=== PATIENT | male | born 1980 | race Caucasian/White ===

== ENCOUNTER → 2024-02-26 06:21 | Day surgery (SDC) | payer OTHER, SELFPAY | LOC: GI 06:21 | PROVIDERS: ATTENDING PHYSICIAN Internal Medicine Gastroenterology | DX: Z12.11 Encounter for screening for malignant neoplasm of colon (principal); Q43.8 Other specified congenital malformations of intestine; D12.3 Benign neoplasm of transverse colon; D12.1 Benign neoplasm of appendix; Z83.719 Family history of colon polyps, unspecified | CPT/HCPCS: 45385; 45380; 88305 ==

== ENCOUNTER 2024-02-28 18:37 | Emergency (ER) | payer OTHER, SELFPAY ==
[2024-02-28 18:48] VITALS: BP 156/98
[2024-02-28 20:58] VITALS: BMI 32.2
[2024-02-28] MEDS: NSS 1000 IV (20:58)
[2024-02-28 21:10] LABS: % Basophils 0.6 % (0-2); % Eosinophils 0.8 % (0-6); % Immature Granulocytes 0.2 % (0-0.5); % Lymphocytes 23.6 % (20.5-51.1); % Monocytes 10.3 % (1.7-9.3); % Neutrophils 64.5 % (42.2-75.2); Absolute Lymphocytes 1.1 10^3/uL (1.2-3.4); Absolute Monocytes 0.5 10^3/uL (0.1-0.6); Absolute Neutrophils 3.1 10^3/uL (1.4-6.5); Hematocrit 39.7 % (39.0-52.0); Hemoglobin 14.1 g/dL (13.0-18.0); Mean Corp Hgb Conc. 35.5 g/dL (33.0-37.0); Mean Corpuscular Hgb 31.2 pg (27.0-31.0); Mean Corpuscular Volume 87.8 fL (80.0-94.0); Nucleated Red Blood Cells % 0 % (-); Platelet Count 188 10^3/uL (130-400); Red Blood Cell Count 4.52 10^6/uL (4.70-6.10); Red Cell Dist. Width 12.8 % (11.5-14.5); White Blood Cell Count 4.7 10^3/uL (4.8-10.8)
[2024-02-28 21:23] LABS: Lactic Acid 0.7 mmol/L (0.7-2.0)
[2024-02-28 21:24] LABS: ALT (SGPT) 32 U/L (0-50); AST (SGOT) 41 U/L (17-59); Albumin 4.5 g/dl (3.5-5.0); Alkaline Phosphatase 43 U/L (38-126); Blood Urea Nitrogen 8 mg/dl (9-20); Calcium 9.6 mg/dl (8.4-10.2); Carbon Dioxide 27 mmol/L (22-30); Chloride 101 mmol/L (98-107); Estimated Creatinine Clearance > 125 ml/min; Glucose 106 mg/dl (70-99); Potassium 4.5 mmol/L (3.5-5.1); Sodium 136 mmol/L (135-145); Total Bilirubin 0.7 mg/dl (0.2-1.3); Total Protein 7.4 g/dl (6.3-8.2); eGFR > 60.00
[2024-02-28] MEDS: OMNIPAQUE 50 ML PO (21:47)
[2024-02-28 22:12] LABS: COVID-19 Antigen Negative (Negative)
[2024-02-28 22:15] VITALS: BP 141/87
--- NOTE | 2024-02-28 22:38 | ED.GENMED ---
History of Present Illness
<Tucker Frost MD - Last Filed: 02/29/24 15:29>
General
Chief Complaint: Fever
Source: patient
Exam Limitations: none
Time Seen by Provider: 02/28/24 19:54
Nursing documentation reviewed up to this point in time: agreed with
Travel History
Have you had any contact with someone who has COVID-19?: No
Do you have any symptoms of coronavirus? Fever > 100 degrees, chills, cough, shortness of breath, sore throat, loss of taste or smell, muscle aches, or headache?: No
History of Present Illness
History of Present Illness:
Patient presents to ED secondary to persistent nausea, chills, body ache, low-grade fever, and decreased appetite over the past 2 days, 1 day after receiving outpatient elective colonoscopy. Per patient, during procedure, 1 polyp was removed.
There was 'spot' noted, for which he is scheduled for CT abdomen pelvis next week. Denies chest pain or shortness of breath. Denies abdominal pain. Denies vomiting. Patient reports having had normal bowel movement today, without any blood noted.
Denies direct sick contact. Denies recent illness. Patient otherwise is healthy without any significant medical history.
Review of Systems
<Tucker Frsot MD - Last Filed: 02/29/24 15:29>
Review of Systems
Allergies reviewed?: Yes
All Other Systems: ROS reviewed and negative except as documented in HPI and ROS
Constitutional: Reports fever
EENT: Reports no symptoms
Respiratory: Reports no symptoms
Cardiac: Reports no symptoms
ABD/GI: Reports nausea; Denies vomiting or diarrhea
: Reports no symptoms
Musculoskeletal: Reports muscle pain
Skin: Reports no symptoms
Neurological: Reports no symptoms
Phy Exam
<Tucker Frost MD - Last Filed: 02/29/24 15:29>
Physical Exam
Physical Exam:
Physical Exam
General: no apparent distress, not acutely ill. afebrile
Head: nc/at. eomi
Neck: supple. no meningeal signs.
Heart: s1/s2 regular rate and rhythm, no murmur. equal radial pulses.
Lungs: no acute respiratory distress. clear bilaterally
Abdomen: normal bowel sounds. not tender.
Neuro: alert and oriented. no focal neurological deficits
Skin: no rash
Psychiatric: well kept. interactive and cooperative
Extremities: no edema. no calf tenderness.
Course
<Tucker Frost MD - Last Filed: 02/29/24 15:29>
Orders/Labs/Results
Orders:
Orders
02/28/24 20:52
0.9% Sodium Chloride 1000 ml [Nss] 1,000 ml IV BOLUS
02/28/24 21:00
Complete Blood Count/With Diff Urgent
Comprehensive Metabolic Panel Urgent
Lactic Acid Q4H
Comment: CANCEL 2nd LACTIC ACID IF 1st LACTIC ACID IS LESS THAN 2
Blood Culture Q30M
INDY Source: Blood/Venous
Specimen Description:
02/28/24 21:27
CT Abd/pel W Iv And Oral Contr Urgent
Comment:
Reason For Exam: abnormal colonoscopy
Iohexol [Omnipaque] See Protocol PO NOW STA
02/28/24 21:47
COVID-19 Antigen Urgent
Source: Nasal Swab
02/28/24 22:46
Influenza A+B Rapid Molecular Urgent
INDY Source: Nasal Swab
Specimen Description:
Abnormal Lab Results
02/28/24
21:00
WBC 4.7 L 10^3/uL
(4.8-10.8)
RBC 4.52 L 10^6/uL
(4.70-6.10)
MCH 31.2 H pg
(27.0-31.0)
Absolute Lymphs (auto) 1.1 L 10^3/uL
(1.2-3.4)
Monocytes % 10.3 H %
(1.7-9.3)
BUN 8 L mg/dl
(9-20)
Glucose 106 H mg/dl
(70-99)
02/28/24 21:00
02/28/24 21:00
Vital Signs
Initial and Last Documented VS:
Initial Vital Signs
Temp Pulse Resp BP Pulse Ox
99.9 F 79 17 156/98 99
02/28/24 18:48 02/28/24 18:48 02/28/24 18:48 02/28/24 18:48 02/28/24 18:48
Last Documented Vital Signs
Temp Pulse Resp BP Pulse Ox
99.5 F 72 16 131/91 100
02/29/24 00:44 02/29/24 00:44 02/29/24 00:44 02/29/24 00:44 02/29/24 00:44
<Amadou Hyatt MD - Last Filed: 02/29/24 06:29>
Orders/Labs/Results
Orders:
Orders
02/28/24 20:52
0.9% Sodium Chloride 1000 ml [Nss] 1,000 ml IV BOLUS
02/28/24 21:00
Complete Blood Count/With Diff Urgent
Comprehensive Metabolic Panel Urgent
Lactic Acid Q4H
Comment: CANCEL 2nd LACTIC ACID IF 1st LACTIC ACID IS LESS THAN 2
Blood Culture Q30M
INDY Source: Blood/Venous
Specimen Description:
02/28/24 21:27
CT Abd/pel W Iv And Oral Contr Urgent
Comment:
Reason For Exam: abnormal colonoscopy
Iohexol [Omnipaque] See Protocol PO NOW STA
02/28/24 21:47
COVID-19 Antigen Urgent
Source: Nasal Swab
02/28/24 22:46
Influenza A+B Rapid Molecular Urgent
INDY Source: Nasal Swab
Specimen Description:
Abnormal Lab Results
02/28/24
21:00
WBC 4.7 L 10^3/uL
(4.8-10.8)
RBC 4.52 L 10^6/uL
(4.70-6.10)
MCH 31.2 H pg
(27.0-31.0)
Absolute Lymphs (auto) 1.1 L 10^3/uL
(1.2-3.4)
Monocytes % 10.3 H %
(1.7-9.3)
BUN 8 L mg/dl
(9-20)
Glucose 106 H mg/dl
(70-99)
02/28/24 21:00
02/28/24 21:00
Vital Signs
Initial and Last Documented VS:
Initial Vital Signs
Temp Pulse Resp BP Pulse Ox
99.9 F 79 17 156/98 99
02/28/24 18:48 02/28/24 18:48 02/28/24 18:48 02/28/24 18:48 02/28/24 18:48
Last Documented Vital Signs
Temp Pulse Resp BP Pulse Ox
99.5 F 72 16 131/91 100
02/29/24 00:44 02/29/24 00:44 02/29/24 00:44 02/29/24 00:44 02/29/24 00:44
<Tucker Frost MD - Last Filed: 02/29/24 15:29>
MDM/Problems Addressed
MDM/Problems Addressed:
Discussed with (GI) and discussed all findings. Recommends obtaining CT abd/pel. If negative, feels that pt can be discharged home for an outpatient f/u with pcp/GI
<Tucker Frost MD - Last Filed: 02/29/24 15:29>
*Critical Care Note
Total Time (30-74mins, 75-104mins- exclusive of procedures): Not Applicable
<Amadou Hyatt MD - Last Filed: 02/29/24 06:29>
Update Note
Update Note:
UPDATE (Amadou Hyatt MD)
I saw and examined patient after signout and reviewed all labs and imaging.
Focused HPI: 43-year-old male with history as documented presents for evaluation of some abdominal pain since routine colonoscopy on Thursday. Has had some nausea no vomiting. Had a low-grade fever. Called on-call GI doctor who recommended going to
the emergency room for assessment. He is still passing stool, last bowel movement was today and normal. Denies urinary symptoms. No other complaints.
Physical exam: Awake alert not in distress. Normal vitals on my assessment. His abdomen is soft, nondistended, nontender to deep palpation.
Medical Decision Makin-year-old male presents for abdominal pain and low-grade fever after colonoscopy on Thursday. Hypertensive in triage vitals normalized by my assessment. He had labs sent off including a CBC which was unremarkable, CMP
which showed no clinically significant abnormalities. Viral swabs were negative. He is pending CT of the abdomen pelvis. If no emergent pathology likely discharged to follow-up with GI and PCP outpatient.
CT of the abdomen pelvis shows signs consistent with enteritis�there was a question on CT report of partial small bowel obstruction but patient has no pain at present, no distention, no tenderness, no vomiting, and is still passing stools�this is
inconsistent with a diagnosis of bowel obstruction. Enteritis is most consistent with his clinical picture�was having nausea yesterday and crampy abdominal pain, slight fever. No clear indication for antibiotics. Likely viral. Advised bland
diet. Prescribe Zofran as needed for nausea. Will follow-up with PCP and GI as an outpatient. Discussed return precautions and all questions answered.
ED Attending Note
<Tucker Frost MD - Last Filed: 02/29/24 15:29>
-
Portions of this chart may have been created with voice recognition software.� Occasional wrong word or��sound alike� substitutions may have occurred due to the inherent limitations of voice recognition software.
Discharge Plan
Departure
Patient Disposition: Home (Routine Discharge)
Date of Disposition: 02/29/24
Time of Disposition: 00:55
Patient with high blood pressure during this ER visit?: Yes
Discharge Problem:
Enteritis, Fever
Instructions: Viral Gastroenteritis, Adult (DC), Fever, Adult (DC)
Prescriptions:
New
ondansetron 4 mg tablet,disintegrating
4 mg PO TIDPRN PRN (Reason: nausea/vomiting) Qty: 14 0RF
Referrals:
Matthew Monte, DO [Family Provider] -
Activity Restrictions/Additional Instructions:
As discussed, please follow-up with your primary care physician with any further concerns.
Interventions
Interventions:
*Risk Screen - Suicide Last Done: 02/29/24 01:06
*General Assessment Last Done: 02/28/24 22:12
*Neglect/Abuse Screening Last Done: 02/29/24 01:06
ED- Fall Risk Assessment Last Done: 02/28/24 22:12
*Nursing Disposition Last Done: 02/29/24 01:06
ED- Neurological Assessment Last Done: 02/28/24 22:12
ED-Skin Assessment Last Done: 02/28/24 22:12
Discharge Date and Time
Discharge Date/Time: 02/29/24 01:06
Print Language: FRISIAN
[2024-02-29 00:44] VITALS: BP 131/91
== END 2024-02-29 01:06 | disposition home or self-care (01) ==
LOC: EMR 18:37
PROVIDERS: EMERGENCY PHYSICIAN Emergency Medicine; FAMILY PHYSICIAN Family Medicine
DX: R50.9 Fever, unspecified (principal); K52.9 Noninfective gastroenteritis and colitis, unspecified; R11.0 Nausea; Z11.52 Encounter for screening for COVID-19; M79.10 Myalgia, unspecified site; R03.0 Elevated blood-pressure reading, without diagnosis of hypertension; Z98.890 Other specified postprocedural states
CPT/HCPCS: 99285; 96361; 96360; 74177; 80053; 83605; 85025; 87040; 87502; 87811; Q9967